=== PATIENT | female | born 1990 | race Caucasian/White ===

== ENCOUNTER 2020-08-17 07:50 | Emergency (ER) | payer OTHER ==
[~2020-08-17] VITALS: Ht 170.2 cm; Wt 90.0 kg
[2020-08-17] MEDS ORDERED: IBUPROFEN 400 MG TABLET PO ONE (08:30)
[2020-08-17 09:11] VITALS: BP 119/74
== END 2020-08-17 09:27 | disposition home or self-care (01) ==
LOC: EMS 07:54
DX: S62.616A Displaced fracture of proximal phalanx of right little finger, initial encounter for closed fracture (principal); F17.210 Nicotine dependence, cigarettes, uncomplicated; F12.90 Cannabis use, unspecified, uncomplicated; W22.8XXA Striking against or struck by other objects, initial encounter; Y93.89 Activity, other specified; Y92.89 Other specified places as the place of occurrence of the external cause; Y99.8 Other external cause status
CPT/HCPCS: 99283